=== PATIENT | female | born 1965 | race Caucasian/White ===

== ENCOUNTER → 2016-04-06 | Outpatient (CLI) | payer BC ==
[2016-04-06 09:51] LABS: CHLORIDE,CL 106 mmol/L (98-110); SODIUM,NA 142 mmol/L (136-146)
--- NOTE | 2016-04-06 15:42 | CR ---
EXAMINATION: Bilateral hips HISTORY: Pain COMPARISON: None TECHNIQUE: 2 views bilaterally FINDINGS: There is no acute osseous abnormality, dislocation, or fracture identified. Bone mineraliz ation and joint spaces appear normal. The iliopectineal lines are intact. IMPRESSION: Grossly unremarkable bilateral hips.
--- NOTE | 2016-04-07 20:57 | XA ---
Exam Date: 04/06/16 Patient's Age: 50 HEIGHT: 64.0 in. WEIGHT: 145.0 lbs. INDICATIONS: Back pain, breast CA, , currently menopausal, family history of osteoporosis, low calcium intake. FRACTURES: TREATMENTS: Caltrate, citalopram (depression), fish oil, Tamoxifen. ASSESSMENT: The BMD measured at AP Spine L1-L4 is 0.947 g/cm2 with a T-score of -2.0. This patient is considered osteopenic according to World Health Organization (WHO) criteria. Bone density is between 10% and 25% below young normal. Fracture risk is moderate. Treatment is advised. The BMD measured at Femur Troch Mean is 0.690 g/cm2 with a T-score of -1.4 is considered moderately low. Fracture risk is moderate. Treated is advised if there are other risk factors. RESULTS: Site Region Age Classification T-Score BMD AP Spine L1-L4 48.4 Osteopenia -2.0 0.947 g/cm2 Dual Femur Neck Mean 48.4 Osteopenia -1.4 0.850 g/cm2 Dual Femur Troch Mean 48.4 N/A -1.4 0.690 g/cm2 Dual Femur Total Mean 48.4 Osteopenia -1.5 0.801 g/cm2 World Health Organization - Criteria for post-menopausal, women: Normal: T-Score at or above -1 SD Osteopenia: T-Score between -1 and -2.5 SD Osteoporosis: T-Score at or below -2.5 SD RECOMMENDATION: Pharmacologic treatment recommendations & Initiate pharmacologic treatment: - In those with hip or vertebral (clinical or asymptomatic) fractures - In those with T -scores <-2.5 at the femoral neck, total hip, or lumbar spine by DXA - In postmenopausal women and men age 50 and older with low bone mass (T-score between -1.0 and -2.5, osteopenia) at the femoral neck, total hip, or lumbar spine by DXA and a 10-year hip fracture probability >3 % or a 10-year major osteoporosis-related fracture probability >20% based on the [place]-adapted WHO absolute fracture risk model (Fracture Risk Algorithm (FRAX); www. NOF.org and www.shef.ac.uk/FRAX) FOLLOW UP: People with diagnosed cases of osteoporosis or at high risk for fracture should have regular bone mineral density tests. For patients eligible for Medicare, routine testing is allowed once every 2 years. The testing frequency can be increased to 1 year for patients who have rapidly progressing disease, those who are reviewing or discontinuing medial therapy to restore bone mass, or have additional risk factors. People with diagnosed cases of osteoporosis or osteopenia should be regularly tested for bone mineral density. For patient eligible for Medicare, routine testing is allowed once every 2 years. The testing frequency can be increased to 1 year for patients who have rapidly progressing disease, or for those who are receiving medial therapy to restore bone mass. [facility] -- MARVIN Bai [phone] - FAX: [phone] [facility]
== END ==
LOC: MW.CHFP 08:59
PROVIDERS: ATTEND Physician Assistant
DX: M25.551 Pain in right hip (principal); M25.552 Pain in left hip
CPT/HCPCS: 36415; 73521; 73521-26; 77080; 77080-26; 80053; 85025; 85652

== ENCOUNTER 2016-05-08 06:24 | Emergency (ER) | payer BC ==
[2016-05-08] MEDS ORDERED: Pantoprazole 80 MG in Sodium Chloride 0.9% 10 ML IVPUSH ONE (06:46)
[2016-05-08] MEDS ORDERED: Alum Hydrox/Mag Hydrox/Simeth 15 ML, Metoclopramide 5 MG, Lidocaine 2% 5 ML PO ONE ×3 (06:46)
--- NOTE | 2016-05-08 06:46 | EDM.PDOC ---
<Shay Goodman J - Last Filed: 05/08/16 06:48> ED HPI GENERAL MEDICAL PROBLEM - General Chief Complaint: Abdominal Pain Stated Complaint: UPPER ABDOMINAL PAIN Time Seen by Provider: 05/08/16 06:43 - History of Present Illness INITIAL COMMENTS - FREE TEXT/NARRATIVE: HISTORY AND PHYSICAL: History of present illness: Patient 50-year-old white female with history of breast cancer present since her epigastric discomfort and associated shortness of breath she states this woke her from sleep she denies history of pulmonary multimer DVT states she has had some reflux but it has not been associated shortness of breath past. She denies diaphoresis nausea vomiting Review of systems: As per history of present illness and below otherwise all systems reviewed and negative. Past medical history: As per history of present illness and as reviewed below otherwise noncontributory. Surgical history: As per history of present illness and as reviewed below otherwise noncontributory. Social history: No reported history of drug or alcohol abuse. Family history: As per history of present illness and as reviewed below otherwise noncontributory. Physical exam: HEENT: Atraumatic, normocephalic, pupils reactive, negative for conjunctival pallor or scleral icterus, mucous membranes moist, throat clear, neck supple, nontender, trachea midline. Lungs: Clear to auscultation, breath sounds equal bilaterally, chest nontender. Heart: S1S2, regular, negative for clicks, rubs, or JVD. Abdomen: Soft, nondistended, nontender. Negative for masses or hepatosplenomegaly. Negative for costovertebral tenderness. Pelvis: Stable nontender. Genitourinary: Deferred. Rectal: Deferred. Extremities: Atraumatic, negative for cords or calf pain. Neurovascular unremarkable. Neuro: Awake, alert, oriented. Cranial nerves II through XII unremarkable. Cerebellum unremarkable. Motor and sensory unremarkable throughout. Exam nonfocal. Diagnostics: CBC CMP troponin PT/INR d-dimer EKG CT chest Therapeutics: IV O2 monitor Impression: #1 epigastric pain #2 dyspnea #3 history of breast cancer Definitive disposition and diagnosis as appropriate pending reevaluation and review of above. Epigastric Pain Score (Numeric/FACES): 3 - Related Data Allergies Allergy/AdvReac Type Severity Reaction Status Date / Time No Known Allergies Allergy Verified 07/07/14 08:19 Home Meds: Home Meds Calcium Carbonate/Vitamin D3 [Calcium 500 + Vit D Caplet] 600 mg PO BID [History] Citalopram [Celexa] 20 mg PO DAILY 05/08/16 [History] Effie-3 Fatty Acids/Fish Oil [Fish Oil 1,200 mg Softgel] 1,200 mg PO DAILY 05/08 [History] Pantoprazole Sodium [Protonix] 40 mg PO DAILY #20 tablet. 05/08/16 [Rx] Tamoxifen Citrate [Tamoxifen Citrate] 20 mg PO DAILY 05/08/16 [History] Social & Family History - Alcohol Use Days Per Week of Alcohol Use: 0 - Recreational Drug Use Recreational Drug Use: No Drug Use in Last 12 Months: No Course - Vital Signs Last Recorded V/S: Last Vital Signs Temp 36.2 C 05/08/16 06:32 Pulse 78 05/08/16 09:23 Resp 16 05/08/16 09:23 BP 123/59 L 05/08/16 09:23 Pulse Ox 95 05/08/16 09:23 - Orders/Labs/Meds Orders: Active Orders 24 hr Category Date Time Status EKG Documentation Completion [RC] STAT Care 05/08/16 06:44 Active Ang Chest [CT] Stat Exams 05/08/16 06:44 Taken Labs: Laboratory Tests 05/08/16 05/08/16 05/08/16 Range/Units 07:04 07:13 07:13 WBC 3.89 L (4.0-11.0) K/uL RBC 4.17 L (4.30-5.90) M/uL Hgb 13.6 (12.0-16.0) g/dL Hct 38.6 (36.0-46.0) % MCV 92.6 (80.0-98.0) fL MCH 32.6 H (27.0-32.0) pg MCHC 35.2 (31.0-37.0) g/dL RDW Std Deviation 42.2 (28.0-62.0) fl RDW Coeff of J Carlos 13 (11.0-15.0) % Plt Count 264 (150-400) K/uL MPV 9.60 (7.40-12.00) fL Neut % (Auto) 58.1 (48.0-80.0) % Lymph % (Auto) 30.1 (16.0-40.0) % [place] % (Auto) 6.7 (0.0-15.0) % Eos % (Auto) 4.6 (0.0-7.0) % Baso % (Auto) 0.5 (0.0-1.5) % Neut # (Auto) 2.3 (1.4-5.7) K/uL Lymph # (Auto) 1.2 (0.6-2.4) K/uL [place] # (Auto) 0.3 (0.0-0.8) K/uL Eos # (Auto) 0.2 (0.0-0.7) K/uL Baso # (Auto) 0.0 (0.0-0.1) K/uL Nucleated RBC % 0.0 /100WBC Nucleated RBCs # 0 K/uL D-Dimer, Quantitative < 0.19 (0.0-0.52) mg/LFEU Sodium 139 (136-146) mmol/L Potassium 4.3 (3.5-5.1) mmol/L Chloride 106 (98-110) mmol/L Carbon Dioxide 23 (21-31) mmol/L BUN 14 (6.0-23.0) mg/dL Creatinine 0.7 (0.6-1.5) mg/dL Est Cr Clr Drug Dosing 88.44 mL/min Estimated GFR (MDRD) > 60.0 ml/min Glucose 88 (60-110) mg/dL Calcium 8.8 (8.8-10.8) mg/dL Total Bilirubin 0.5 (0.1-1.5) mg/dL AST 56 H (5-40) IU/L ALT 44 (8-54) IU/L Alkaline Phosphatase 41 (40-150) CK-MB (CK-2) 1.1 (0-6.6) ng/ml Troponin I (0.0-0.29) NG/ML Total Protein 6.6 (6.0-8.0) g/dL Albumin 3.9 (3.5-5.0) g/dL Globulin 2.7 (2.0-3.5) g/dL Albumin/Globulin Ratio 1.4 (1.3-2.8) 05/08/16 Range/Units 07:13 WBC (4.0-11.0) K/uL RBC (4.30-5.90) M/uL Hgb (12.0-16.0) g/dL Hct (36.0-46.0) % MCV (80.0-98.0) fL MCH (27.0-32.0) pg MCHC (31.0-37.0) g/dL RDW Std Deviation (28.0-62.0) fl RDW Coeff of J Carlos (11.0-15.0) % Plt Count (150-400) K/uL MPV (7.40-12.00) fL Neut % (Auto) (48.0-80.0) % Lymph % (Auto) (16.0-40.0) % [place] % (Auto) (0.0-15.0) % Eos % (Auto) (0.0-7.0) % Baso % (Auto) (0.0-1.5) % Neut # (Auto) (1.4-5.7) K/uL Lymph # (Auto) (0.6-2.4) K/uL [place] # (Auto) (0.0-0.8) K/uL Eos # (Auto) (0.0-0.7) K/uL Baso # (Auto) (0.0-0.1) K/uL Nucleated RBC % /100WBC Nucleated RBCs # K/uL D-Dimer, Quantitative (0.0-0.52) mg/LFEU Sodium (136-146) mmol/L Potassium (3.5-5.1) mmol/L Chloride (98-110) mmol/L Carbon Dioxide (21-31) mmol/L BUN (6.0-23.0) mg/dL Creatinine (0.6-1.5) mg/dL Est Cr Clr Drug Dosing mL/min Estimated GFR (MDRD) ml/min Glucose (60-110) mg/dL Calcium (8.8-10.8) mg/dL Total Bilirubin (0.1-1.5) mg/dL AST (5-40) IU/L ALT (8-54) IU/L Alkaline Phosphatase (40-150) CK-MB (CK-2) (0-6.6) ng/ml Troponin I < 0.10 (0.0-0.29) NG/ML Total Protein (6.0-8.0) g/dL Albumin (3.5-5.0) g/dL Globulin (2.0-3.5) g/dL Albumin/Globulin Ratio (1.3-2.8) Meds: Medications Discontinued Medications Generic Name Dose Route Start Last Admin Trade Name Dezq PRN Reason Stop Dose Admin Al Hydroxide/Mg Hydroxide 15 0 ml 05/08/16 06:46 05/08/16 07:03 ml/ Metoclopramide HCl 5 mg/ PO 05/08/16 06:47 1 each Lidocaine HCl 5 ml ONETIME ONE Administration Pantoprazole Sodium 80 mg/ 10 mls @ 300 mls/hr 05/08/16 06:46 05/08/16 07:57 Sodium Chloride IVPUSH 05/08/16 06:47 300 mls/hr NOW ONE Administration Pantoprazole Sodium Confirm 05/08/16 07:21 05/08/16 08:04 Protonix Iv Administered 05/08/16 07:22 Not Given Dose 80 mg .ROUTE .STK-MED ONE Sodium Chloride 20 ml 05/08/16 07:59 05/08/16 08:03 Normal Saline FLUSH 05/08/16 08:00 20 ml NOW STA Administration Departure - Departure Disposition: Home, Self-Care 01 Clinical Impression: Gastritis, Gastroesophageal reflux disease Prescriptions: Pantoprazole Sodium [Protonix] 40 mg PO DAILY #20 tablet. Instructions: Gastroesophageal Reflux Disease, Adult Referrals: Zhang Quinones MD [Primary Care Provider] - Forms: ED Department Discharge <Shay Celis - Last Filed: 05/08/16 15:33> ED HPI GENERAL MEDICAL PROBLEM - History of Present Illness INITIAL COMMENTS - FREE TEXT/NARRATIVE: [place] of care note - Dr. Shay Celis Initial evaluation care and workup orchestrated by Dr. goodman. Care assumed by me at 7 AM to follow pending CTA of the chest to rule out PE or other intrathoracic abnormality, to reevaluate the patient clinically and provide for disposition. Exam: Well-appearing patient normal vital signs no acute distress smiling and comfortable appearing sitting on the edge of her bed. Clear lungs regular rate and rhythm no tachycardia. Normal respiratory rate and pulse ox. Benign abdomen and no CVA tenderness Patient stable and well-appearing on reexam with unremarkable vital signs. CTA of the chest unremarkable. Patient feels that she is having symptoms of gastritis and reflux. Protonix given in the emergency department and prescription will be provided. On reevaluation prior to discharge patient's smiling well-appearing asymptomatic and comfortable with normal and stable vital signs. He is aware to followup with her doctor and return immediately for new severe or worsening symptoms. No further workup or treatment indicated patient and agree with outpatient followup and strict return precautions given Savage Celis M.D. ED ROS GENERAL - Review of Systems Review Of Systems: See Below (Per history of present illness) ED EXAM, GENERAL - Physical Exam Exam: See Below (Per history of present illness) Departure - Departure Time of Disposition: 09:58 Condition: good
[2016-05-08] MEDS ORDERED: Pantoprazole 40 MG Vial ONE (07:21)
[2016-05-08 07:32] LABS: CHLORIDE,CL 106 mmol/L (98-110); SODIUM,NA 139 mmol/L (136-146)
[2016-05-08] MEDS ORDERED: Sodium Chloride 0.9% 20 ML SDV FLUSH STA (07:59)
[2016-05-08 09:23] VITALS: BP 123/59
--- NOTE | 2016-05-08 09:47 | PCM.SN ---
- Free Text/Narrative Note: Called for IV placement for angio CT requiring an 18 g IV catheter above wrist level, preferably in the antecubital space. Pt has had right mastectomy so cannot have IV's placed to right side. Nursing staff has tried times 3 to start IV but sites infiltrated after drawing labs off catheters. Ultrasound used to locate viable veins in right antecubital. Using aseptic technique, 18 g abbocath placed to vein in left AC under ultrasound view. Successful placement with blood return and easy flushing.
[2016-05-08] MEDS ORDERED: Iopamidol 755 Mg/ML 100 ML Bottle IVPUSH STA (14:17)
--- NOTE | 2016-05-09 18:28 | CT ---
EXAM DATE: 05/08/16 PATIENT'S AGE: 50 Patient: CHENG LEMON Facility: [place], [place] Site . Site : [id number] Study: CT Chest Angio [id number]/[id number] 8:30:17 AM Ordering Physician: Maxine Day Final Report: INDICATION: Epigastric pain. Shortness of breath. TECHNIQUE: Multiple axial images were obtained from the apices to the diaphragm after administration of 50 mL of Isovue-370 intravenously sagittal and coronal re- formatted images were obtained. Study was performed per the pulmonary artery embolism protocol. COMPARISON: None. FINDINGS: There is minimal atelectasis in the dependent portion both lungs. There is no pulmonary nodule or pleural effusion seen. There is no mediastinal, hilar or axillary adenopathy. There is no pulmonary artery embolism seen on this the study. There are degenerative in the spine. IMPRESSION: 1. No acute abnormality. 2. No pulmonary artery embolism seen. Dictated by Gavin Stephens MD @ 05/08/2016 9:17:42 AM Dictated by: Gavin Stephens MD @ 05/08/2016 09:18:10 (Electronic Signature) Report Signed by Proxy and Original Signed Document filed in the Medical Record. [facility]
== END 2016-05-08 09:58 | disposition home or self-care (01) ==
LOC: MW.ED 06:24
DX: K29.70 Gastritis, unspecified, without bleeding (principal); K21.9 Gastro-esophageal reflux disease without esophagitis; Z85.3 Personal history of malignant neoplasm of breast; Z79.899 Other long term (current) drug therapy
CPT/HCPCS: 36415; 71275; 80053; 82553; 84484; 85025; 85379; 93005; 96374; 99284; A9270; C9113; Q9967; 36410

== ENCOUNTER 2018-09-13 10:10 | Day surgery (SDC) | payer BC ==
[~2018-09-13 10:10] MED LIST: Lactated Ringers 1,000 ML IV SCH; Lidocaine 2% 5 ML SDV ONE; Propofol 200 MG/20 ML SDV ONE; Sodium Chloride 0.9% 10 ML SDV IV PRN; Sodium Chloride 0.9% 10 ML Syringe FLUSH PRN; Sodium Chloride 0.9% 2.5 ML Syringe FLUSH PRN; fentaNYL 100 MCG/2 ML SDV ONE
--- NOTE | 2018-09-13 10:58 | PCM.PREANE ---
Preanesthetic Assessment - Anesthesia/Transfusion/Family Hx Anesthesia History: Prior Anesthesia Without Reaction Family History of Anesthesia Reaction: No Transfusion History: No Prior Transfusion(s) Intubation History: Unknown - Review of Systems General: No Symptoms Pulmonary: No Symptoms Cardiovascular: No Symptoms Gastrointestinal: Other (family h/o colon cancer, screening colonoscopy) Neurological: No Symptoms Other: Reports: None - Physical Assessment O2 Sat by Pulse Oximetry: 100 Respiratory Rate: 16 Vital Signs: Last Vital Signs Temp 36.2 C 09/13/18 10:46 Pulse 78 09/13/18 10:46 Resp 16 09/13/18 10:46 BP 133/73 09/13/18 10:46 Pulse Ox 100 09/13/18 10:46 Height: 5 ft 5 in Weight: 72.575 kg ASA Class: 2 Mental Status: Alert & Oriented x3 Airway Class: Mallampati = 2 Dentition: Reports: Normal Dentition, Sanctuary(s) (x1 right lower (back)) Thyro-Mental Finger Breadths: 3 Mouth Opening Finger Breadths: 3 ROM/Head Extension: Full Lungs: Clear to Auscultation, Normal Respiratory Effort Cardiovascular: Regular Rate, Regular Rhythm - Allergies Allergies/Adverse Reactions: Allergies Allergy/AdvReac Type Severity Reaction Status Date / Time No Known Allergies Allergy Verified 09/10/18 15:39 - Blood Blood Available: No - Anesthesia Plan Pre-Op Medication Ordered: None - Acknowledgements Anesthesia Type Planned: MAC Pt an Appropriate Candidate for the Planned Anesthesia: Yes Alternatives and Risks of Anesthesia Discussed w Pt/Guardian: Yes Pt/Guardian Understands and Agrees with Anesthesia Plan: Yes PreAnesthesia Questionnaire HEENT History: Reports: Other (See Below) Other HEENT History: uses reading glasses, has removable retainer. Gastrointestinal History: Reports: GERD IT ADMIN History: Reports: Neurological History: Reports: Concussion, Head Trauma Other Neuro History: hx of fx skull Psychiatric History: Reports: Depression Endocrine/Metabolic History: Reports: Osteopenia Oncologic (Cancer) History: Reports: Breast Other Oncologic History: hx of breast cancer- had chemo and radiation in - Infectious Disease History Infectious Disease History: Reports: Chicken Pox - Past Surgical History GI Surgical History: Reports: Cholecystectomy Female Surgical History: Reports: Breast Biopsy, Other (See Below) Other Female Surgeries/Procedures: hx of right breast lumpectomy x2 and sentinal node dissection Oncologic Surgical History: Reports: Mastectomy, Other (See Below) Other Oncologic Surgeries/Procedures: right mastectomy with lymph node removal - SUBSTANCE USE Smoking Status *Q: Never Smoker Recreational Drug Use History: No - HOME MEDS Home Medications: Home Meds Citalopram [Celexa] 20 mg PO DAILY 05/08/16 [History] Luning-3 Fatty Acids/Fish Oil [Fish Oil 1,200 mg Softgel] 1,200 mg PO DAILY 05/08 [History] Tamoxifen Citrate 20 mg PO DAILY 05/08/16 [History] Calcium Carbonate/Vitamin D3 [Calcium 500 + Vit D 400] 1 tab PO DAILY 09/10/18 [ History] Esomeprazole Magnesium [Nexium 24Hr] 20 mg PO DAILY 09/10/18 [History] - CURRENT (IN HOUSE) MEDS Current Meds: Current Medications Lactated Ringer's (Ringers, Lactated) 1,000 mls @ 125 mls/hr IV ASDIRECTED JOHNATHON Last Admin: 09/13/18 10:50 Dose: 125 mls/hr Sodium Chloride (Saline Flush) 10 ml FLUSH ASDIRECTED PRN PRN Reason: Keep Vein Open Sodium Chloride (Saline Flush) 2.5 ml FLUSH ASDIRECTED PRN PRN Reason: Keep Vein Open Sodium Chloride (Saline Flush) 10 ml FLUSH ASDIRECTED PRN PRN Reason: Keep Vein Open Sodium Chloride (Saline Flush) 2.5 ml FLUSH ASDIRECTED PRN PRN Reason: Keep Vein Open Sodium Chloride (Normal Saline) 10 ml IV ASDIRECTED PRN PRN Reason: IV Use Discontinued Medications Fentanyl (Sublimaze) Confirm Administered Dose 100 mcg .ROUTE .STK-MED ONE Stop: 09/13/18 08:00 Lidocaine (Xylocaine-Mpf 2%) Confirm Administered Dose 5 ml .ROUTE .STK-MED ONE Stop: 09/13/18 08:00 Propofol (Diprivan 20 Ml) Confirm Administered Dose 400 mg .ROUTE .STK-MED ONE Stop: 09/13/18 08:00
--- NOTE | 2018-09-13 11:28 | PCM.OPNOTE ---
- General Post-Op/Procedure Note Date of Surgery/Procedure: 09/13/18 Operative Procedure(s): screening colonoscopy Findings: small anal fissure Pre Op Diagnosis: colon cancer screening Post-Op Diagnosis: small anal fissure [place] [facility] [place]geon: Gardenia Fontanez Pathology: none Condition: Good
--- NOTE | 2018-09-13 12:01 | PCM48HPAN ---
Post Anesthesia Note - EVALUATION WITHIN 48HRS OF ANESTHETIC Vital Signs in Normal Range: Yes Patient Participated in Evaluation: Yes Respiratory Function Stable: Yes Airway Patent: Yes Cardiovascular Function Stable: Yes Hydration Status Stable: Yes Pain Control Satisfactory: Yes Nausea and Vomiting Control Satisfactory: Yes Mental Status Recovered: Yes Resp Rate: 8 - COMMENTS/OBSERVATIONS Free Text/Narrative:: no anesthesia problems
[2018-09-13 12:18] VITALS: BP 106/54; PULSE 92
--- NOTE | 2018-09-13 14:37 | OR ---
SURGEON: GARDENIA FONTANEZ MD DATE OF PROCEDURE: 09/13/2018 PREOPERATIVE DIAGNOSIS: Screening colonoscopy. POSTOPERATIVE DIAGNOSIS: Anal fissure. PROCEDURE PERFORMED: Screening colonoscopy. PRIMARY SURGEON: Endoscopist, Gardenia Fontanez MD. ANESTHESIA: MAC. INSTRUMENT USED: Olympus colonoscope. EXTENT OF EXAM: To the cecum. PREPARATION: Good. LIMITATIONS: None. INDICATION FOR EXAMINATION: The patient is a 52-year-old female who presents for first time screening colonoscopy. I explained the procedure, expected perioperative course, and risks including bleeding, infection, or damage to surrounding structures including perforation. The patient verbalized understanding and wishes to proceed. PROCEDURE IN DETAIL: The patient was brought into the endoscopy suite and placed in a left lateral decubitus position. A time-out was completed verifying the patient's name, age, date of , allergies, and procedure to be performed. Monitored anesthesia care was induced and continuous oxygen was provided via nasal cannula throughout the procedure. After adequate sedation was achieved, a digital rectal exam was performed. This exam revealed a posterior midline skin tag. A well lubricated colonoscope was inserted into the rectum and advanced under direct visualization to the level of the cecum. The cecum was identified by both visual and anatomic landmarks. A photograph was taken of the cecal cap as well as with the scope retroflexed within the cecum. The scope was then straightened out and fully withdrawn while examining the color, texture, anatomy, and integrity of the mucosa from the cecum to the anal canal. The findings were consistent with normal colonic mucosa. The scope was then brought into the rectum and retroflexed to allow visualization of the anal canal opening. This revealed a small anal fissure in the posterior midline. A photograph of this was taken. Scope was straightened out and fully withdrawn. The cecum to anus time was 6 minutes. The patient tolerated the procedure well and was transferred to the PACU in stable condition. ENDOSCOPIC DIAGNOSIS: Anal fissure. RECOMMENDATIONS: I will visit with the patient in the PACU regarding this anal fissure. She will not need another colonoscopy for 10 years. LISSETH BARNES /[id number]
== END 2018-09-13 12:14 | disposition home or self-care (01) ==
LOC: MW.SDS 10:10
PROVIDERS: ATTEND Surgery
DX: Z12.11 Encounter for screening for malignant neoplasm of colon (principal); K60.2 Anal fissure, unspecified; K21.9 Gastro-esophageal reflux disease without esophagitis; F32.9 Major depressive disorder, single episode, unspecified; Z79.899 Other long term (current) drug therapy
CPT/HCPCS: 45378; J2001; J2704; J3010; J7120

== ENCOUNTER 2019-07-01 15:52 | Emergency (ER) | payer BC ==
--- NOTE | 2019-07-01 16:18 | EDM.PDOC ---
ED HPI GENERAL MEDICAL PROBLEM - General Chief Complaint: Lower Extremity Injury/Pain Stated Complaint: PT FELL AND INJURED R ANKLE Time Seen by Provider: 07/01/19 16:01 - History of Present Illness INITIAL COMMENTS - FREE TEXT/NARRATIVE: History of present illness: [Presents with right ankle pain after stepping down from some steps out of her RV last night and rolling her right ankle. She has been able to bear weight but it is swollen and painful when she does bear weight he is also bruising now she denies any other injuries weightbearing makes it worse being still makes it better she took Tylenol for pain and that seemed to help no other complaints no other injuries no other medical issues] Review of systems: As per history of present illness and below otherwise all systems reviewed and negative. Past medical history: As per history of present illness and as reviewed below otherwise noncontributory. Surgical history: As per history of present illness and as reviewed below otherwise noncontributory. Social history: No reported history of drug or alcohol abuse. Family history: As per history of present illness and as reviewed below otherwise noncontributory. Physical exam: HEENT: Atraumatic, normocephalic, pupils reactive, negative for conjunctival pallor or scleral icterus, mucous membranes moist, throat clear, neck supple, nontender, trachea midline. Lungs: Clear to auscultation, breath sounds equal bilaterally, chest nontender. Heart: S1S2, regular, negative for clicks, rubs, or JVD. Abdomen: Soft, nondistended, nontender. Negative for masses or hepatosplenomegaly. Negative for costovertebral tenderness. Pelvis: Stable nontender. Genitourinary: Deferred. Rectal: Deferred. Extremities: Atraumatic, negative for cords or calf pain. Neurovascular unremarkable. Ankle is minimally swollen over the lateral malleolus with some ecchymosis extending down the foot on the lateral aspect there is tenderness posteriorly on the lateral malleolus none of the fifth metatarsal there is good distal pulse motor and sensation. There is no other head tenderness. Neuro: Awake, alert, oriented. Cranial nerves II through XII unremarkable. Cerebellum unremarkable. Motor and sensory unremarkable throughout. Exam nonfocal. Diagnostics: [] Therapeutics: Splint will be applied to the right ankle by nursing staff for instability. [] Impression: Ankle sprain [] Plan: X-ray will be obtained and the patient will be reassessed discharge home splinted follow-up with orthopedics [] Definitive disposition and diagnosis as appropriate pending reevaluation and review of above. R ankle Pain Score (Numeric/FACES): 7 - Related Data Allergies Allergy/AdvReac Type Severity Reaction Status Date / Time No Known Allergies Allergy Verified 07/01/19 16:09 Home Meds: Home Meds Citalopram [Celexa] 20 mg PO DAILY 05/08/16 [History] Tamoxifen Citrate 20 mg PO DAILY 05/08/16 [History] Calcium Carbonate/Vitamin D3 [Calcium 500 + Vit D 400] 1 tab PO DAILY 09/10/18 [ History] Esomeprazole Magnesium [Nexium 24Hr] 20 mg PO DAILY 09/10/18 [History] Past Medical History HEENT History: Reports: Other (See Below) Other HEENT History: uses reading glasses, has removable retainer. Gastrointestinal History: Reports: GERD [employer]MENT REPA[employer]ER History: Reports: Neurological History: Reports: Concussion, Head Trauma Other Neuro History: hx of fx skull Psychiatric History: Reports: Depression Endocrine/Metabolic History: Reports: Osteopenia Oncologic (Cancer) History: Reports: Breast Other Oncologic History: hx of breast cancer- had chemo and radiation in 2014- - Infectious Disease History Infectious Disease History: Reports: Chicken Pox - Past Surgical History GI Surgical History: Reports: Cholecystectomy Female Surgical History: Reports: Breast Biopsy, Other (See Below) Other Female Surgeries/Procedures: hx of right breast lumpectomy x2 and sentinal node dissection Oncologic Surgical History: Reports: Mastectomy, Other (See Below) Other Oncologic Surgeries/Procedures: right mastectomy with lymph node removal Social & Family History - Family History Cardiac: Reports: Hypertension, [place] - Caffeine Use Caffeine Use: Reports: None Review of Systems - Review of Systems Review Of Systems: See Below ED EXAM, GENERAL - Physical Exam Exam: See Below Course - Vital Signs Text/Narrative:: 3 view right ankle read and interpreted by me as negative for acute fractures or dislocation. Last Recorded V/S: Last Vital Signs Temp 35.9 C L 07/01/19 15:59 Pulse 95 07/01/19 15:59 Resp 18 07/01/19 15:59 BP 152/54 H 07/01/19 15:59 Pulse Ox 96 07/01/19 15:59 - Orders/Labs/Meds Orders: Active Orders 24 hr Category Date Time Status Splinting [RC] ASDIRECTED Care 07/01/19 16:10 Active Ankle Min 3V Rt [CR] Stat Exams 07/01/19 16:09 Ordered Departure - Departure Time of Disposition: 04:45 Disposition: Home, Self-Care 01 Condition: Good Clinical Impression: Ankle sprain - Discharge Information *PRESCRIPTION DRUG MONITORING PROGRAM REVIEWED*: Not Applicable *COPY OF PRESCRIPTION DRUG MONITORING REPORT IN PATIENT TIMBO: Not Applicable Instructions: Ankle Sprain, [id number] Referrals: Amparo Coyle PA [Primary Care Provider] - Forms: ED Department Discharge Additional Instructions: The following information is given to patients seen in the emergency department who are being discharged to home. This information is to outline your options for follow-up care. We provide all patients seen in our emergency department with a follow-up referral. The need for follow-up, as well as the timing and circumstances, are variable depending upon the specifics of your emergency department visit. If you don't have a primary care physician on staff, we will provide you with a referral. We always advise you to contact your personal physician following an emergency department visit to inform them of the circumstance of the visit and for follow-up with them and/or the need for any referrals to a consulting specialist. The emergency department will also refer you to a specialist when appropriate. This referral assures that you have the opportunity for follow-up care with a specialist. All of these measure are taken in an effort to provide you with optimal care, which includes your follow-up. Under all circumstances we always encourage you to contact your private physician who remains a resource for coordinating your care. When calling for follow-up care, please make the office aware that this follow-up is from your recent emergency room visit. If for any reason you are refused follow-up, please contact the [facility] Emergency Department at and asked to speak to the emergency department charge nurse. [facility] Professional Building [address] [place] [address], [address] [place] [address] Sepsis Event Note - Focused Exam Vital Signs: Vital Signs Temp Pulse Resp BP Pulse Ox 07/01/19 15:59 35.9 C L 95 18 152/54 H 96 Date Exam was Performed: 07/01/19 Time Exam was Performed: 16:18 - My Orders Last 24 Hours: My Active Orders 07/01/19 16:09 Ankle Min 3V Rt [CR] Stat 07/01/19 16:10 Splinting [RC] ASDIRECTED - Assessment/Plan Last 24 Hours: My Active Orders 07/01/19 16:09 Ankle Min 3V Rt [CR] Stat 07/01/19 16:10 Splinting [RC] ASDIRECTED
--- NOTE | 2019-07-01 16:38 | CR ---
Right ankle: 3 views of the right ankle were obtained. Comparison: No prior right ankle study. Ankle mortise is symmetric. No fracture, dislocation or other bony abnormality is seen. Impression: 1. No abnormality is appreciated on 3 view right ankle exam. Diagnostic code #1 Study was dictated in MDT
[2019-07-01 16:40] VITALS: BP 126/76; PULSE 72
== END 2019-07-01 16:40 | disposition home or self-care (01) ==
LOC: MW.ED 15:52
DX: S93.401A Sprain of unspecified ligament of right ankle, initial encounter (principal); K21.9 Gastro-esophageal reflux disease without esophagitis; F32.9 Major depressive disorder, single episode, unspecified; Z79.899 Other long term (current) drug therapy; W10.8XXA Fall (on) (from) other stairs and steps, initial encounter
CPT/HCPCS: 29515; 73610-26-RT; 73610-RT; 99283-25